=== PATIENT | female | born 1990 | race Hispanic/Latino ===

== ENCOUNTER 2016-10-01 10:34 | Outpatient (CLI) | payer BC ==
--- NOTE | 2016-10-01 11:52 | Ultrasound Report ---
LEFT AXILLARY ULTRASOUND: 10/01/16 10:34:00 CLINICAL: 25 year-old with a palpable lump in the left axilla. FINDINGS: Ultrasound of the left axilla was performedand demonstrated two lymph nodes with central fat and benign morphology. The lymph nodes 1.4 x 0.9 x 1.7 cm and 0.9 x 0.5 x 0.8 cm. No suspicious lymph node. IMPRESSION: Benign lymph nodes left axilla. BI-RADS 2 - - Benign RECOMMENDATION: Clinical followup.
== END 2016-10-01 10:35 | disposition home or self-care (01) ==
LOC: SPVWC 10:34
PROVIDERS: ATTEND Internal Medicine
DX: R22.32 Localized swelling, mass and lump, left upper limb (principal)